=== PATIENT | female | born 1940 | race Caucasian/White ===

== ENCOUNTER 2016-09-08 13:02 | Emergency (ER) | payer OTHER ==
[~2016-09-08] VITALS: Ht 162.6 cm; Wt 87.7 kg
[2016-09-08 14:35] LABS: ADD MIUA? YES; BILIRUBIN NEGATIVE; BLOOD NEGATIVE; COLOR YELLOW ((YELLOW)); GLUCOSE (STRIP) NEGATIVE; KETONES 20; LEUKOCYTES MODERATE; NITRITE NEGATIVE; PROTEIN (STRIP) NEGATIVE; SPECIFIC GRAVITY 1.015 (1.000-1.030); UROBILINOGEN 0.2 MG/DL (0.2-1.0)
[2016-09-08 14:42] LABS: BACTERIA RARE /HPF; EPITHELIAL CELLS 1+ /HPF; HYALINE CASTS 0-5 /LPF; MUCUS 2+ /LPF; UCUL ADDED? NO; WHITE BLOOD CELLS 15-20 /HPF (0-5)
[2016-09-08 14:44] LABS: BASOPHIL COUNT 0.1 K/uL (0-0.1); EOSINOPHIL (%) 1.3 % (0-5); EOSINOPHIL COUNT 0.1 K/uL (0-0.3); HEMATOCRIT 43.2 % (36.0-46.0); IMMATURE GRANULOCYTE (%) 0.4 % (0.0-0.7); INSTRUMENT ABS NEUTROPHIL CT 7.6 K/uL; LYMPHOCYTE COUNT 2.6 K/uL (1.0-2.8); MCHC 33.8 G/DL (30.0-36.0); MCV 85.9 FL (83-99); MONOCYTE (%) 6.1 % (3-12); MONOCYTE COUNT 0.7 K/uL (0-0.8); NEUTROPHIL (%) 68.5 % (45-76); NEUTROPHIL COUNT 7.6 K/uL (1.8-6.4); RBC DIS.WIDTH-CV 13.1 % (11.8-14.6); RBC DIS.WIDTH-SD 40.6 % (39-53); RED BLOOD COUNT 5.03 M/uL (3.80-5.20); WHITE BLOOD COUNT 11.2 K/uL (4.1-10.2)
[2016-09-08 14:52] LABS: CHLORIDE 108 mEq/L (99-109); POTASSIUM 4.1 mEq/L (3.7-5.4); SODIUM 142 mEq/L (136-147)
[2016-09-08 14:55] LABS: GLUCOSE 91 mg/dL (70-99)
[2016-09-08 14:56] LABS: ANION GAP 12 MEQ/L (2-14)
[2016-09-08 14:57] LABS: TOTAL BILIRUBIN 0.4 mg/dL (0.0-1.0)
[2016-09-08 14:58] LABS: ALKALINE PHOSPHATASE 102 IU/L (3-129)
[2016-09-08 14:59] LABS: GFR ESTIMATE (CALCULATED) 58 mL/min/
[2016-09-08 15:00] LABS: UREA NITROGEN (BUN) 20 mg/dL (9-23)
[2016-09-08 16:18] LABS: MEAN PLAT.VOLUME 10.6 uM^3 (9.5-12.4); PLAT.SUFFICIENCY ADEQUATE; PLATELET COUNT 213 K/uL (156-360)
[2016-09-08] MEDS ORDERED: BACTRIM,SEPT1 TABLET PO (16:23)
[2016-09-08] MEDS ORDERED: ZOFRAN ODT4 MG PO (16:24)
[2016-09-08] MEDS ORDERED: PERCOCET 5/31 TABLET PO (16:24)
[2016-09-08 17:29] VITALS: BP 150/80
== END 2016-09-08 17:31 | disposition home or self-care (01) ==
LOC: EME 13:02
PROVIDERS: Physician Assistant
DX: N39.0 Urinary tract infection, site not specified (principal); R10.32 Left lower quadrant pain
CPT/HCPCS: 74177; 80053; 81003; 83605; 85025; 87086; 99281; 99285; J0696; J3010; J7050; J7120

== ENCOUNTER 2016-09-24 19:02 | Emergency (ER) | payer OTHER ==
[~2016-09-24] VITALS: Ht 162.6 cm; Wt 87.2 kg
[~2016-09-24 19:02] MED LIST: BACTRIM,SEPT1 TABLET PO; PERCOCET 5/31 TABLET PO; ZOFRAN ODT4 MG PO
[2016-09-24 19:38] LABS: EOSINOPHIL (%) 0.3 % (0-5); EOSINOPHIL COUNT 0.1 K/uL (0-0.3); HEMATOCRIT 46.1 % (36.0-46.0); IMMATURE GRANULOCYTE (%) 0.3 % (0.0-0.7); IMMATURE GRANULOCYTE COUNT 0.1 K/uL; INSTRUMENT ABS NEUTROPHIL CT 14.8 K/uL; LYMPHOCYTE COUNT 2.1 K/uL (1.0-2.8); MCH 28.9 PG (29.0-34.0); MCHC 33.6 G/DL (30.0-36.0); MCV 85.8 FL (83-99); MEAN PLAT.VOLUME 10.7 uM^3 (9.5-12.4); MONOCYTE (%) 4.3 % (3-12); MONOCYTE COUNT 0.8 K/uL (0-0.8); NEUTROPHIL (%) 83.3 % (45-76); NEUTROPHIL COUNT 14.8 K/uL (1.8-6.4); PLATELET COUNT 199 K/uL (156-360); RBC DIS.WIDTH-CV 12.8 % (11.8-14.6); RBC DIS.WIDTH-SD 39.7 % (39-53); RED BLOOD COUNT 5.37 M/uL (3.80-5.20); WHITE BLOOD COUNT 17.8 K/uL (4.1-10.2)
[2016-09-24 19:48] LABS: CHLORIDE 104 mEq/L (99-109); POTASSIUM 4.1 mEq/L (3.7-5.4); SODIUM 139 mEq/L (136-147)
[2016-09-24 19:50] LABS: GLUCOSE 145 mg/dL (70-99)
[2016-09-24 19:51] LABS: ANION GAP 16 MEQ/L (2-14)
[2016-09-24 19:52] LABS: TOTAL BILIRUBIN 0.5 mg/dL (0.0-1.0)
[2016-09-24 19:54] LABS: ALKALINE PHOSPHATASE 144 IU/L (3-129); GFR ESTIMATE (CALCULATED) 52 mL/min/
[2016-09-24 19:55] LABS: UREA NITROGEN (BUN) 19 mg/dL (9-23)
[2016-09-24 19:57] LABS: LIPASE 23 U/L (1.0-51.0)
[2016-09-24 22:03] VITALS: BP 153/101
== END 2016-09-24 22:15 | disposition short-term general hospital (02) ==
LOC: EME 19:02
PROVIDERS: Emergency Medicine
DX: K50.012 Crohn's disease of small intestine with intestinal obstruction (principal); Z90.49 Acquired absence of other specified parts of digestive tract; Z93.3 Colostomy status; Z90.710 Acquired absence of both cervix and uterus
CPT/HCPCS: 74176; 80053; 83690; 85025; 99281; 99285; J1170; J2270; J2405; J7030; J7050